=== PATIENT | male | born 1955 | race Caucasian/White ===

== ENCOUNTER 2018-04-04 06:11 | Day surgery (SDC) | payer OTHER ==
[2018-03-29 15:41] VITALS: BMI 25.8
[~2018-04-04 06:11] MED LIST: methylPREDNISolone ACET (DEPO) 40 MG/1 ML VIAL IM ONE; oxyCODONE HCL 10 MG SUSTAINED ACTING TABLET PO ONE
[2018-04-04] MEDS ORDERED: methylPREDNISolone ACET (DEPO) 40 MG/1 ML VIAL ONE (07:01)
[2018-04-04] MEDS ORDERED: BUPIVACAINE HCL/PF 2.5 MG/ML - 30 ML VIAL IJ ONE (07:01)
[2018-04-04] MEDS ORDERED: THROMBIN (RECOMBINANT) 5,000 UNIT VIAL TP ONE (07:01)
[2018-04-04] MEDS ORDERED: LIDOCAINE 1%/EPI 1:100000 (20 ML MULTI DOSE VIAL) ONE (07:02)
[2018-04-04] MEDS ORDERED: MIDAZOLAM HCL 2 MG/2 ML SINGLE DOSE VIAL ONE (07:38)
[2018-04-04] MEDS ORDERED: DEXAMETHASONE SOD PHOSPHATE/PF 10 MG/ML SDV ONE (07:38)
[2018-04-04] MEDS ORDERED: BUPIVACAINE HCL/PF (5 MG/ML) 30 ML VIAL IJ ONE (07:39)
--- NOTE | 2018-04-04 07:56 | HP ---
History & Physical Update - History History: No Change - Physical Physical: No Change - Assessment Assessment: No Change - Plan Plan: No Change ([facility] h&P in chart from 03/29/2018)
[2018-04-04] MEDS ORDERED: PROPOFOL 20 ML ONE (08:41)
[2018-04-04] MEDS ORDERED: SUCCINYLCHOLINE CHLORIDE 200 MG/10 ML VIAL ONE (08:41)
[2018-04-04] MEDS ORDERED: ONDANSETRON 4 MG/2 ML VIAL ONE (08:53)
[2018-04-04] MEDS ORDERED: ceFAZolin SODIUM 1 GM VIAL ONE (08:53)
[2018-04-04] MEDS ORDERED: DEXAMETHASONE SOD PHOSPHATE 4 MG/1 ML VIAL ONE (08:53)
[2018-04-04] MEDS ORDERED: LIDOCAINE 1%/EPI 1:100000 (20 ML MULTI DOSE VIAL) IJ ONE (09:00)
[2018-04-04] MEDS ORDERED: THROMBIN (BOVINE) 5,000 UNIT VIAL TP ONE (09:26)
[2018-04-04] MEDS ORDERED: GELATIN SPONGE,ABSORBABLE 1 GM PACKET TP ONE (09:27)
[2018-04-04] MEDS ORDERED: BUPIVACAINE HCL/PF 0.25% (2.5MG/ML) 10 ML VIAL IJ ONE (09:50)
[2018-04-04] MEDS ORDERED: methylPREDNISolone ACET (DEPO) 40 MG/1 ML VIAL IM ONE (09:50)
[2018-04-04] MEDS ORDERED: ONDANSETRON 4 MG/2 ML VIAL IVPUSH PRN (09:58)
[2018-04-04] MEDS ORDERED: oxyCODONE HCL 5 MG TABLET PO PRN (09:58)
[2018-04-04] MEDS ORDERED: LACTATED RINGERS SOLUTION 1,000 ML IV SCH (10:00)
[2018-04-04] MEDS ORDERED: GUM MASTIC/STORAX/MSAL/ALCOHOL 1 DRP DROPSBTL MC ONE (10:07)
--- NOTE | 2018-04-04 11:17 | OP ---
Operative Note - Note: Operative Date: 04/04/18 Pre-Operative Diagnosis: L4-5 and L5-S1 spinal stenosis Operation: laminectomy of L4-L5 and L5-S1 Surgeon: Stephen May Medical Health Researcher: Loren Gray Anesthesiologist/WINDOW CASER: Alison Chaney Anesthesia: Spinal Estimated Blood Loss (mls): 20 Fluid Volume Replaced (mls): 900 Operative Report Dictated: Yes
--- NOTE | 2018-04-04 11:34 | SURG ---
Surgery Picker Box Operator Note Picker Box Operator: Loren Gray PA-C Date of Service: 04/04/18 Diagnosis: L4-5 and L5-S1 spinal stenosis Procedure: laminectomy of L4-L5 and L5-S1 I was present for the entirety of the operative procedure. For further detail, please refer to operative report. Visit type - Case Type Case Type: Scheduled - Emergency Emergency Visit: No - New patient This patient is new to me today: Yes Date on this admission: 04/04/18
[2018-04-04 13:38] VITALS: BP 136/80; PULSE 70; TEMP 97.9
--- NOTE | 2018-04-04 13:47 | OP ---
DATE OF OPERATION: 04/04/2018 PREOPERATIVE DIAGNOSIS: Spinal stenosis L4-S1. POSTOPERATIVE DIAGNOSIS: Spinal stenosis L4-S1. PROCEDURE PERFORMED: Laminectomy L4-L5, L5-S1. SURGEON: Stephen May MD IRON LAUNDER OPERATOR: ROSEMARIE Carrera ESTIMATED BLOOD LOSS: 50 mL. IV FLUIDS: Per Anesthesia. ANESTHESIA: Spinal/TLIP. COMPLICATIONS: None. DISPOSITION: The patient was brought to the PACU in stable condition. INDICATIONS FOR SURGERY: The patient is a 62-year-old gentleman who has been suffering from pain from his back down his legs. X-rays and MRI were completed, which noted that he had spinal stenosis at L4-L5 and L5-S1. He had gone through an exhaustive course of treatment for this, which included medications, physical therapy as well as injections. Unfortunately, his pain continued to persist despite all this. At this point, risks, benefits, and alternatives were discussed, and the patient consented to surgery. DESCRIPTION OF PROCEDURE: The patient was brought to the operating room by the anesthesia staff. After appropriate patient identification was performed, spinal anesthesia was given. The patient was able to position himself prone onto the OR table with all areas of bony prominences well padded at this time. Two needles were placed into his back to martha off the L4-S1 segments. X-ray was taken to confirm this was correct. The needle was removed, and 10 mL of lidocaine with epinephrine was injected into his back. At this time, his back was prepped and draped in a sterile manner. At this point, a time-out was completed. An incision was made from the top of L4 down to the bottom of S1. Dissection was carried down to the fascia. Fascia was then split open at this time. Appropriate retractor was then placed in. A spinal needle was placed onto the L4 lamina to martha off the L4-L5 level. X-ray was taken to confirm this was correct. Needle was removed, and the microscope was brought in. The interspinous ligament at L4-L5 and L5-S1 was removed. The spinous process at L5 was removed. The lamina of L5 was removed. The flavum was removed. By the end of the procedure, the L5 and S1 nerve roots appeared to be well decompressed. All bleeding was well controlled at this time. Steri-Strips was placed over the nerve root. FloSeal was placed over that. The fascia was closed with a No. 1 Vicryl suture. The subcutaneous tissue was closed with 2-0 Vicryl suture. The skin was closed with 3-0 Monocryl suture. Dermabond was applied. Steri-Strips were applied. A sterile dressing was applied. The patient was placed supine on the OR bed and brought to the PACU in stable condition. Gabbie FIERRO/[id number] MTDD
== END 2018-04-04 13:38 | disposition home or self-care (01) ==
LOC: FASU 06:11
PROVIDERS: ATTEND Orthopaedic Surgery Orthopaedic Surgery of the Spine
PROC: 01NB0ZZ Release Lumbar Nerve, Open Approach (ICD-10-PCS; principal; 2018-04-04 08:30)
DX: M48.061 Spinal stenosis, lumbar region without neurogenic claudication (principal); M48.07 Spinal stenosis, lumbosacral region
CPT/HCPCS: 72100-TC-FY; 94760